=== PATIENT | male | born 1995 | race Caucasian/White ===

== ENCOUNTER 2018-07-15 14:32 | Emergency (ER) | payer OTHER ==
[~2018-07-15] VITALS: Ht 177.8 cm; Wt 68.0 kg
[2018-07-15 14:38] VITALS: BP 132/75
--- NOTE | 2018-07-15 14:45 | NUR ---
PT. BIB FATHER , WHEELCHAIRED TO BED . PT. STATES " I FELL FROM [place] ON SATURDAY AND THEY TOOK ME TO [facility] AND THEY TOLD ME BOTH MY HEELS WERE BROKEN AND A FRACTURE IN MY SPINE, BUT TOLD ME I HAD TO COME TO MY HOSPITAL, THEY PUT SPLINTS ON BUT THEN I TOOK THEM OFF THIS MORNING TO SHOWER". R ANKLE SWELLING NOTED , NON TENDER TO TOUCH NO DEFORMITY NOTED. PEDAL PULSES 3+ BILAT STRONG. ROM INTACT. PT. IS ALERT AND COOPERATIVE. ER MD MADE AWARE. WILL CONTINUE TO MONITOR. PT DENIES ANY -LOC UPON FALL, DENIES ANY HIT IN HEAD. FATHER AT BEDSIDE. SAFETY PRECAUTIONS IN PLACE.
[2018-07-15 15:34] VITALS: BP 130/76
--- NOTE | 2018-07-15 15:34 | NUR ---
Patient discharged with v/s stable. Written and verbal after care instructions given and explained. Patient alert, oriented and verbalized understanding of instructions. Wheel Chair Assisted with to car. All questions addressed prior to discharge. ID band removed. Patient advised to follow up with PMD. Rx of IBUPROFEN 800MG given. Patient educated on indication of medication including possible reaction and side effects. Opportunity to ask questions provided and answered.
== END 2018-07-15 15:34 | disposition home or self-care (01) ==
LOC: MED 14:32
DX: M79.671 Pain in right foot (principal); M79.672 Pain in left foot; M54.5 Low back pain
CPT/HCPCS: 99283